=== PATIENT | female | born 1960 | race Caucasian/White ===

== ENCOUNTER 2016-12-26 17:37 | Emergency (ER) | payer OTHER ==
[~2016-12-26 17:37] MED LIST: AMARYL1 M1 PO; ANTIVERT/2525 M1 PO; ARICEPT10 M1 PO; ASPI-COR81 M1 PO; ATIVAN0.5 MG PO; GLIPIZIDE ER10 M1 PO; LEXAPRO20 MG PO; MEDROL DOSEPAK4 MG PO; MELATONIN3 M1 PO; METFORMIN500 MG PO; NATURE'S BLEND F1 MG PO; ZOCOR20 MG PO; ZOCOR40 MG PO
[2016-12-26 19:45] LABS: BASO % 0.2 % (0.0-1.0); EOS # 0.1 10*3/uL (0.0-0.4); EOS % 0.8 % (1.0-4.0); HEMATOCRIT 42.4 % (37.0-47.0); HEMOGLOBIN 14.5 g/dl (12.0-16.0); LYMPH # 2.3 10*3/uL (1.3-4.4); LYMPH % 22.6 % (27.0-41.0); MEAN CELL VOLUME 84.5 fl (81.0-99.0); MEAN CORPUSCULAR HGB 28.9 pg (27.0-31.0); MEAN CORPUSCULAR HGB CONC 34.2 g/dl (33.0-37.0); MEAN PLATELET VOLUME 9.4 fl (9.6-12.3); MONO # 0.7 10*3/uL (0.1-1.0); MONO % 7.2 % (3.0-9.0); NEUT # 6.9 10*3/uL (2.3-7.9); NEUT % 68.8 % (47.0-73.0); PLATELET COUNT AUTOMATED 315 10*3/uL (130-400); RED BLOOD COUNT 5.02 10*6/uL (4.10-5.10); RED CELL DISTRI WIDTH 12.4 % (0-14.5)
[2016-12-26 20:02] LABS: ALBUMIN 3.7 gm/dl (3.1-4.5); ALKALINE PHOSPHATASE 104 U/L (45-117); BUN 14 mg/dl (7-24); CHLORIDE 105 mmol/L (98-107); CREATININE 0.73 mg/dL (0.55-1.02); MAGNESIUM 2.2 mg/dL (1.5-2.1); POTASSIUM 3.6 mmol/L (3.5-5.1); SGOT/AST 14 IU/L (3-35); SGPT/ALT 20 U/L (12-78); SODIUM 139 mmol/L (136-145); TOTAL PROTEIN 7.7 gm/dL (6.4-8.2)
[2016-12-26 20:04] LABS: TROPONIN I < 0.015 ng/ml (<0.045)
[2016-12-26 21:43] VITALS: BP 132/58
[2016-12-26] MEDS ORDERED: ZOFRAN ODT4 MG SL (22:45)
[2016-12-27] MEDS ORDERED: ZOVIRAX800 MG PO (00:01)
== END 2016-12-27 00:15 | disposition home or self-care (01) ==
LOC: ED 17:37
PROVIDERS: Emergency Medicine Emergency Medical Services
DX: B02.29 Other postherpetic nervous system involvement (principal); R42 Dizziness and giddiness; F17.200 Nicotine dependence, unspecified, uncomplicated; Z86.73 Personal history of transient ischemic attack (TIA), and cerebral infarction without residual deficits; Z88.6 Allergy status to analgesic agent; Z79.82 Long term (current) use of aspirin; Z79.899 Other long term (current) drug therapy